=== PATIENT | female | born 1940 ===

== ENCOUNTER 2018-12-19 07:45 | Inpatient (IN) | payer OTHER ==
[~2018-12-19] VITALS: Ht 157.5 cm; Wt 110.0 kg
[2018-12-20] MEDS ORDERED: ATENOLOL50 MG PO (10:00)
[2018-12-20] MEDS ORDERED: TIZANIDINE HCL4 MG PO (10:01)
[2018-12-21] MEDS ORDERED: OXYC1TAB9 PO (06:29)
[2018-12-21] MEDS ORDERED: INTEGRA PLUS C1 EACH PO (06:29)
[2018-12-21] MEDS ORDERED: XARELTO10 MG PO (06:29)
== END 2018-12-21 13:58 | DRG 470 ==
LOC: CIR.AMB 07:45 → EDSTATUS 07:45 → SURH 07:46 → O/R 08:10 → SURH 22:13
PROVIDERS: ADMIT Orthopaedic Surgery Sports Medicine
PROC: 0SRR0JZ Replacement of Right Hip Joint, Femoral Surface with Synthetic Substitute, Open Approach (ICD-10-PCS; principal; 2018-12-19 04:15)
DX: S72.001A Fracture of unspecified part of neck of right femur, initial encounter for closed fracture (principal); X58.XXXA Exposure to other specified factors, initial encounter; I10 Essential (primary) hypertension; I49.8 Other specified cardiac arrhythmias; Z88.0 Allergy status to penicillin